=== PATIENT | female | born 1990 | race Hispanic/Latino ===

== ENCOUNTER 2017-05-27 21:02 | Emergency (ER) | payer SELFPAY | END 2017-05-27 21:58 | disposition home or self-care (01) | LOC: EDH 21:02 | DX: N81.9 Female genital prolapse, unspecified (principal); J45.909 Unspecified asthma, uncomplicated; Z98.51 Tubal ligation status | CPT/HCPCS: 99281 ==

== ENCOUNTER 2017-07-27 21:54 | Emergency (ER) | payer MEDICAID ==
[2017-07-27 23:35] LABS: BILIRUBIN,URINE Negative (NEGATIVE); COLOR,URINE Yellow (YELLOW); GLUCOSE, URINE (UA) Negative (NEGATIVE); KETONES,URINE Negative (NEGATIVE); LEUKOCYTE ESTERASE ,URINE Negative (NEGATIVE); NITRATE,URINE Negative (NEGATIVE); OCCULT BLOOD,URINE Negative (NEGATIVE); PH,URINE >=9.0 (5.0-8.0); PROTEIN,URINE Negative (NEGATIVE)
[2017-07-27 23:36] LABS: APPEARANCE,URINE CLOUDY (CLEAR); HCG,QUAL RESULT NEGATIVE (NEGATIVE)
[2017-07-27 23:44] LABS: BACTERIA,URINE Many /HPF (None Seen); RBC,URINE None Seen /HPF (0-1); SQUAMOUS EPITHELIAL CELL,UR 0-2 /HPF (0-2)
[2017-07-27 23:49] LABS: AMPHET/METH SCREEN,URINE NEGATIVE (NEGATIVE); BARBITURATE SCREEN, URINE NEGATIVE (NEGATIVE); BENZODIAZEPINES SCREEN,URINE NEGATIVE (NEGATIVE); CANNABINOID SCREEN,URINE NEGATIVE (NEGATIVE); COCAINE SCREEN,URINE NEGATIVE (NEGATIVE); OPIATE SCREEN,URINE NEGATIVE (NEGATIVE); PHENCYCLIDINE SCREEN,URINE NEGATIVE (NEGATIVE)
[2017-07-27] MEDS ORDERED: ONDANSETRON HCL 4 MG/2 ML VIAL ONE (23:55)
[2017-07-27] MEDS ORDERED: DiphenhydrAMINE HCL 50 MG/ML VIAL ONE (23:55)
[2017-07-27] MEDS ORDERED: METOCLOPRAMIDE 10 MG TABLET ONE (23:56)
[2017-07-27] MEDS ORDERED: KETOROLAC TROMETHAMINE 30MG/ML ONE (23:56)
[2017-07-27] MEDS ORDERED: SODIUM CHLORIDE 0.9% 1000ML 1,000 ML IV ONE (23:56)
[2017-07-28 00:05] LABS: BASOPHILS % (AUTO) 0.8 % (0.0-5.0); EOSINOPHILS % (AUTO) 6.8 % (0.0-8.0); HEMATOCRIT 28.3 % (36-48); LYMPHOCYTES % (AUTO) 20.2 % (21.0-51.0); MEAN CORPUSCULAR HGB CONC 31.1 g/dL (32.0-36.0); MEAN CORPUSCULAR VOLUME 60.9 fL (79-99); MONOCYTES % (AUTO) 4.9 % (3.0-13.0); NEUTROPHILS % (AUTO) 67.3 % (40.0-77.0); PLATELET COUNT (AUTO) 261 K/uL (130-400); RED BLOOD CELL COUNT(AUTO) 4.64 MIL/uL (4.00-5.50); RED CELL DISTRIBUTION WIDTH 21.8 % (11.0-15.5); WHITE BLOOD COUNT (AUTO) 10.1 K/uL (4.8-10.8)
[2017-07-28 00:26] LABS: POTASSIUM 4.3 mmol/L (3.5-5.1)
[2017-07-28 00:30] LABS: ALBUMIN 3.8 g/dL (3.5-5.0); BILIRUBIN,TOTAL 0.1 mg/dL (0.2-1.0); TOTAL PROTEIN, SERUM 7.5 g/dL (6.0-8.3)
== END 2017-07-28 01:36 | disposition home or self-care (01) ==
LOC: EDH 21:54
DX: G44.329 Chronic post-traumatic headache, not intractable (principal); D50.0 Iron deficiency anemia secondary to blood loss (chronic); J45.909 Unspecified asthma, uncomplicated; Z72.0 Tobacco use
CPT/HCPCS: 36415; 80053; 80305; 81001; 81025; 83690; 84484; 85025; 93005; 96361; 96374; 96375; 99285; J1200; J1885; J2405; J7030

== ENCOUNTER 2017-08-26 23:40 | Emergency (ER) | payer MEDICAID | END 2017-08-27 01:31 | disposition home or self-care (01) | LOC: EDH 23:40 | DX: N89.8 Other specified noninflammatory disorders of vagina (principal); J45.909 Unspecified asthma, uncomplicated; D64.9 Anemia, unspecified; Z72.0 Tobacco use; Z98.51 Tubal ligation status | CPT/HCPCS: 99281 ==

== ENCOUNTER 2018-06-15 22:15 | Emergency (ER) | payer MEDICAID ==
[2018-06-15 22:44] LABS: APPEARANCE,URINE CLEAR (CLEAR); BILIRUBIN,URINE NEGATIVE (NEGATIVE); COLOR,URINE YELLOW (YELLOW); GLUCOSE, URINE (UA) NEGATIVE (NEGATIVE); KETONES,URINE NEGATIVE (NEGATIVE); LEUKOCYTE ESTERASE ,URINE SMALL (NEGATIVE); NITRATE,URINE NEGATIVE (NEGATIVE); OCCULT BLOOD,URINE TRACE-INTACT (NEGATIVE); PH,URINE 5.5 (5.0-8.0); PROTEIN,URINE NEGATIVE (NEGATIVE); UROBILINOGEN,URINE 0.2 mg/dL (0.2-1.0)
[2018-06-15 22:48] LABS: HCG,QUAL RESULT NEGATIVE (NEGATIVE)
[2018-06-15 22:50] LABS: BACTERIA,URINE None Seen /HPF (None Seen); RBC,URINE 0-1 /HPF (0-1); SQUAMOUS EPITHELIAL CELL,UR Rare /HPF (0-2); WBC,URINE 0-1 /HPF (0-1)
[2018-06-15] MEDS ORDERED: DICYCLOMINE HCL 10 MG/ML 2ML AMP IM ONE ×2 (23:05→23:34)
[2018-06-15 23:09] LABS: CREATININE 0.7 mg/dL (0.5-1.5); POTASSIUM 3.9 mmol/L (3.5-5.1)
[2018-06-15 23:14] LABS: ALBUMIN 3.8 g/dL (3.5-5.0); BILIRUBIN,TOTAL 0.3 mg/dL (0.2-1.0); TOTAL PROTEIN, SERUM 7.7 g/dL (6.0-8.3)
[2018-06-15 23:17] LABS: BASOPHILS % (AUTO) 0.6 % (0.0-5.0); HEMATOCRIT 31.5 % (36-48); LYMPHOCYTES % (AUTO) 13.6 % (21.0-51.0); MEAN CORPUSCULAR HEMOGLOBIN 21.6 pg (27.0-33.0); MEAN CORPUSCULAR HGB CONC 31.3 g/dL (32.0-36.0); MONOCYTES % (AUTO) 6.7 % (3.0-13.0); NEUTROPHILS % (AUTO) 78.1 % (40.0-77.0); PLATELET COUNT (AUTO) 205 K/uL (130-400); RED BLOOD CELL COUNT(AUTO) 4.56 MIL/uL (4.00-5.50); WHITE BLOOD COUNT (AUTO) 15.2 K/uL (4.8-10.8)
[2018-06-15] MEDS ORDERED: KETOROLAC TROMETHAMINE 30MG/ML ONE (23:28)
== END 2018-06-16 02:32 | disposition home or self-care (01) ==
LOC: EDH 22:15
DX: A08.4 Viral intestinal infection, unspecified (principal); I10 Essential (primary) hypertension; E78.5 Hyperlipidemia, unspecified; F41.9 Anxiety disorder, unspecified; F32.9 Major depressive disorder, single episode, unspecified; Z79.899 Other long term (current) drug therapy; Z72.0 Tobacco use; Z98.51 Tubal ligation status
CPT/HCPCS: 36415; 80053; 81001; 81025; 85025; 96361; 96372; 96374; 99285; J0500 ×2; J1885

== ENCOUNTER 2018-11-29 09:09 | Emergency (ER) | payer MEDICAID ==
[2018-11-29 09:57] LABS: BASOPHILS % (AUTO) 0.9 % (0.0-5.0); EOSINOPHILS % (AUTO) 3.9 % (0.0-8.0); HEMATOCRIT 34.2 % (36-48); MEAN CORPUSCULAR HEMOGLOBIN 21.2 pg (27.0-33.0); MEAN CORPUSCULAR HGB CONC 31.4 g/dL (32.0-36.0); MEAN CORPUSCULAR VOLUME 67.5 fL (79-99); MONOCYTES % (AUTO) 4.4 % (3.0-13.0); NEUTROPHILS % (AUTO) 64.8 % (40.0-77.0); PLATELET COUNT (AUTO) 220 K/uL (130-400); RED BLOOD CELL COUNT(AUTO) 5.07 MIL/uL (4.00-5.50); RED CELL DISTRIBUTION WIDTH 20.1 % (11.0-15.5); WHITE BLOOD COUNT (AUTO) 5.1 K/uL (4.8-10.8)
[2018-11-29 10:05] LABS: CREATININE 0.8 mg/dL (0.5-1.5); POTASSIUM 3.9 mmol/L (3.5-5.1)
[2018-11-29] MEDS ORDERED: SODIUM CHLORIDE 0.9% 1000ML 1,000 ML IV ONE (10:30)
[2018-11-29 11:02] LABS: B-TYPE NATRIURETIC PEPTIDE < 5 pg/mL (0-100)
[2018-11-29 13:15] LABS: HCG,QUAL RESULT NEGATIVE (NEGATIVE)
[2018-11-29 13:19] LABS: AMPHET/METH SCREEN,URINE NEGATIVE (NEGATIVE); BARBITURATE SCREEN, URINE NEGATIVE (NEGATIVE); BENZODIAZEPINES SCREEN,URINE NEGATIVE (NEGATIVE); CANNABINOID SCREEN,URINE NEGATIVE (NEGATIVE); COCAINE SCREEN,URINE NEGATIVE (NEGATIVE); OPIATE SCREEN,URINE NEGATIVE (NEGATIVE); PHENCYCLIDINE SCREEN,URINE NEGATIVE (NEGATIVE)
== END 2018-11-29 12:59 | disposition home or self-care (01) ==
LOC: EDH 09:09
DX: R06.00 Dyspnea, unspecified (principal); F41.9 Anxiety disorder, unspecified; J45.909 Unspecified asthma, uncomplicated; I10 Essential (primary) hypertension; F32.9 Major depressive disorder, single episode, unspecified; Z72.0 Tobacco use
CPT/HCPCS: 36415; 71045; 80048; 80305; 81025; 83880; 84484; 85025; 93005; 99285; J7030

== ENCOUNTER → 2019-03-21 | Outpatient (CLI) | payer MEDICAID | END | disposition home or self-care (01) | LOC: RAH 12:52 | PROVIDERS: ATTEND Family Medicine | DX: R20.0 Anesthesia of skin (principal); G89.29 Other chronic pain | CPT/HCPCS: 70551; 72148 ==

== ENCOUNTER → 2019-06-13 | Outpatient (CLI) | payer MEDICAID | END | disposition home or self-care (01) | LOC: RAH 09:22 | PROVIDERS: ATTEND Family Medicine | DX: K21.9 Gastro-esophageal reflux disease without esophagitis (principal) | CPT/HCPCS: 74240 ==

== ENCOUNTER 2020-05-20 04:52 | Emergency (ER) | payer MEDICAID ==
[2020-05-20] MEDS ORDERED: HYDROXYZINE HCL 25 MG TABLET ONE (05:10)
== END 2020-05-20 05:48 | disposition home or self-care (01) ==
LOC: EDH 04:52
DX: F41.1 Generalized anxiety disorder (principal); J45.909 Unspecified asthma, uncomplicated; F32.9 Major depressive disorder, single episode, unspecified; I10 Essential (primary) hypertension; K21.9 Gastro-esophageal reflux disease without esophagitis; Z72.0 Tobacco use
CPT/HCPCS: 96372

== ENCOUNTER → 2020-07-02 | Outpatient (CLI) | payer MEDICAID | END | disposition home or self-care (01) | LOC: RAH 08:18 | PROVIDERS: ATTEND Family Medicine | DX: K21.9 Gastro-esophageal reflux disease without esophagitis (principal) | CPT/HCPCS: 74240 ==

== ENCOUNTER 2020-11-15 11:19 | Emergency (ER) | payer MEDICAID ==
[~2020-11-15] VITALS: Ht 160 cm; Wt 80.7 kg
[2020-11-15 11:23] VITALS: BP 121/67
[2020-11-15 12:22] LABS: HCG,QUAL RESULT NEGATIVE (NEGATIVE)
[2020-11-15 12:23] LABS: APPEARANCE,URINE Clear (CLEAR); BILIRUBIN,URINE Negative (NEGATIVE); COLOR,URINE Yellow (YELLOW); GLUCOSE, URINE (UA) Negative (NEGATIVE); KETONES,URINE Negative (NEGATIVE); LEUKOCYTE ESTERASE ,URINE Negative (NEGATIVE); NITRATE,URINE Negative (NEGATIVE); OCCULT BLOOD,URINE Negative (NEGATIVE); PH,URINE 7.5 (5.0-8.0); PROTEIN,URINE Negative (NEGATIVE)
[2020-11-15] MEDS ORDERED: FENTANYL 50 MCG/HR PATCH TD SCH (12:30)
[2020-11-15] MEDS ORDERED: KETOROLAC 60 MG VIAL (30MG/ML) IM ONE (12:30)
[2020-11-15 12:31] LABS: BASOPHILS % (AUTO) 0.3 % (0.0-5.0); EOSINOPHILS % (AUTO) 2.9 % (0.0-8.0); HEMATOCRIT 38.7 % (36-48); LYMPHOCYTES % (AUTO) 20.7 % (21.0-51.0); MEAN CORPUSCULAR HEMOGLOBIN 25.1 pg (27.0-33.0); MEAN CORPUSCULAR HGB CONC 31.8 g/dL (32.0-36.0); MONOCYTES % (AUTO) 7.7 % (3.0-13.0); NEUTROPHILS % (AUTO) 68.1 % (40.0-77.0); PLATELET COUNT (AUTO) 193 K/uL (130-400); RED CELL DISTRIBUTION WIDTH 23.4 % (11.0-15.5); WHITE BLOOD COUNT (AUTO) 6.9 K/uL (4.8-10.8)
[2020-11-15 12:40] LABS: CREATININE 0.6 mg/dL (0.5-1.5)
[2020-11-15 12:45] LABS: ALBUMIN 3.5 g/dL (3.5-5.0); BILIRUBIN,TOTAL 0.2 mg/dL (0.2-1.0); TOTAL PROTEIN, SERUM 7.2 g/dL (6.0-8.3)
[2020-11-15] MEDS ORDERED: ACET-2247 PO (13:19)
== END 2020-11-15 13:26 | disposition home or self-care (01) ==
LOC: EDH 11:19
DX: G89.18 Other acute postprocedural pain (principal); R10.9 Unspecified abdominal pain; E78.00 Pure hypercholesterolemia, unspecified; Z90.49 Acquired absence of other specified parts of digestive tract
CPT/HCPCS: 36415; 74176; 80053; 81003; 81025; 85025; 96372; 99284; J1885

== ENCOUNTER → 2021-05-18 | Outpatient (CLI) | payer MEDICAID ==
[~2021-05-18] MED LIST: ACET-2247 PO
== END | disposition home or self-care (01) ==
LOC: RAH 10:22
PROVIDERS: ATTEND Family Medicine
DX: E28.2 Polycystic ovarian syndrome (principal)
CPT/HCPCS: 76856

== ENCOUNTER 2021-11-18 21:12 | Emergency (ER) | payer MEDICAID ==
[~2021-11-18] VITALS: Ht 160 cm; Wt 80.7 kg
[2021-11-18 22:04] LABS: APPEARANCE,URINE CLOUDY (CLEAR); BILIRUBIN,URINE NEGATIVE (NEGATIVE); COLOR,URINE YELLOW (YELLOW); GLUCOSE, URINE (UA) NEGATIVE (NEGATIVE); KETONES,URINE NEGATIVE (NEGATIVE); LEUKOCYTE ESTERASE ,URINE 500 Leu/uL (NEGATIVE); NITRATE,URINE NEGATIVE (NEGATIVE); OCCULT BLOOD,URINE LARGE (NEGATIVE); PROTEIN,URINE 70 mg/dL (NEGATIVE); UROBILINOGEN,URINE 0.2 mg/dL (0.2-1.0)
[2021-11-18 22:08] LABS: BACTERIA,URINE RARE /HPF (None Seen); MUCUS,URINE RARE LPF (None Seen); RBC,URINE TNTC /HPF (0-1); SQUAMOUS EPITHELIAL CELL,UR MOD /HPF (0-2); URIC ACID CRYSTALS,URINE RARE /LPF (None Seen); WBC,URINE TNTC /HPF (0-1)
[2021-11-18] MEDS ORDERED: PHEN-847 PO (22:20)
[2021-11-18] MEDS ORDERED: MACR100 PO (22:20)
[2021-11-18 22:30] VITALS: BP 108/72
[2021-11-18] MEDS ORDERED: NITROFURANTOIN MONOHYD/M-CRYST 100 MG CAPSULE PO ONE (22:30)
[2021-11-18] MEDS ORDERED: PHENAZOPYRIDINE HCL 200 MG TABLET PO ONE (22:30)
== END 2021-11-18 22:36 | disposition home or self-care (01) ==
LOC: EDH 21:12
DX: N39.0 Urinary tract infection, site not specified (principal); E78.00 Pure hypercholesterolemia, unspecified; Z90.49 Acquired absence of other specified parts of digestive tract
CPT/HCPCS: 81001; 87077; 87088; 87186

== ENCOUNTER 2023-06-11 04:34 | Emergency (ER) | payer MEDICAID ==
[~2023-06-11] VITALS: Ht 160 cm; Wt 72.6 kg
[~2023-06-11 04:34] MED LIST changes: +MACR100 PO; +PHEN-847 PO
[2023-06-11 04:58] LABS: BASOPHILS # (AUTO) 0.04 K/uL (0.00-0.20); BASOPHILS % (AUTO) 0.5 % (0.0-5.0); EOSINOPHILS # (AUTO) 0.31 K/uL (0.00-0.70); EOSINOPHILS % (AUTO) 3.8 % (0.0-8.0); HEMATOCRIT 40.5 % (36-48); IMMATURE GRANULOCYTE ABSOLUTE 0.02 K/uL (0-1); LYMPHOCYTES # (AUTO) 2.6 K/uL (1.0-4.8); LYMPHOCYTES % (AUTO) 31.1 % (21.0-51.0); MEAN CORPUSCULAR HEMOGLOBIN 29.5 pg (27.0-33.0); MEAN CORPUSCULAR HGB CONC 34.1 g/dL (32.0-36.0); MEAN CORPUSCULAR VOLUME 86.5 fL (79-99); MONOCYTES # (AUTO) 0.6 K/uL (0.1-1.0); MONOCYTES % (AUTO) 7.7 % (3.0-13.0); NEUTROPHILS # (AUTO) 4.7 K/uL (1.8-7.7); NEUTROPHILS % (AUTO) 56.7 % (40.0-77.0); PLATELET COUNT (AUTO) 212 K/uL (130-400); RED BLOOD CELL COUNT(AUTO) 4.68 MIL/uL (4.00-5.50); RED CELL DISTRIBUTION WIDTH 13.5 % (11.0-15.5); WHITE BLOOD COUNT (AUTO) 8.2 K/uL (4.8-10.8)
[2023-06-11] MEDS: ONDANSETRON 4MG INJ IVP ONE (05:04)
[2023-06-11] MEDS: 0.9%NACL 1000ML 1,000 ML IV ONE (05:04)
[2023-06-11] MEDS: ONDANSETRON 4MG INJ ONE (05:07)
[2023-06-11 05:08] LABS: CREATININE 0.7 mg/dL (0.5-1.0); POTASSIUM 3.5 mmol/L (3.5-5.1)
[2023-06-11 05:09] LABS: APPEARANCE,URINE CLEAR (CLEAR); BILIRUBIN,URINE NEGATIVE (NEGATIVE); COLOR,URINE YELLOW (YELLOW); GLUCOSE, URINE (UA) NEGATIVE (NEGATIVE); KETONES,URINE NEGATIVE (NEGATIVE); LEUKOCYTE ESTERASE ,URINE 75 Leu/uL (NEGATIVE); NITRATE,URINE NEGATIVE (NEGATIVE); OCCULT BLOOD,URINE MODERATE (NEGATIVE); PH,URINE 5.5 (5.0-8.0); PROTEIN,URINE 20 mg/dL (NEGATIVE)
[2023-06-11 05:12] LABS: ALBUMIN 3.6 g/dL (3.5-5.0); BILIRUBIN,TOTAL 0.2 mg/dL (0.2-1.0); TOTAL PROTEIN, SERUM 7.3 g/dL (6.0-8.3)
[2023-06-11 05:18] LABS: AMPHET/METH SCREEN,URINE NEGATIVE (NEGATIVE); BARBITURATE SCREEN, URINE NEGATIVE (NEGATIVE); BENZODIAZEPINES SCREEN,URINE NEGATIVE (NEGATIVE); CANNABINOID SCREEN,URINE NEGATIVE (NEGATIVE); COCAINE SCREEN,URINE NEGATIVE (NEGATIVE); OPIATE SCREEN,URINE NEGATIVE (NEGATIVE); PHENCYCLIDINE SCREEN,URINE NEGATIVE (NEGATIVE)
[2023-06-11 05:28] LABS: ADD UA MICROSCOPIC YES
[2023-06-11 05:29] LABS: BACTERIA,URINE MOD /HPF (None Seen); MUCUS,URINE FEW LPF (None Seen); SQUAMOUS EPITHELIAL CELL,UR MANY /HPF (0-2)
[2023-06-11] MEDS: MAGNESIUM OXIDE 400 MG TABLET PO ONE (05:30)
[2023-06-11 05:34] LABS: HCG,QUALITATIVE URINE NEGATIVE (NEGATIVE)
[2023-06-11] MEDS ORDERED: ONDA4TAB10 PO (06:27)
[2023-06-11 06:28] VITALS: BP 113/83; PULSE 77; RESP 18; O2SAT 98
== END 2023-06-11 06:38 | disposition home or self-care (01) ==
LOC: EDH 04:34
DX: S96.912A Strain of unspecified muscle and tendon at ankle and foot level, left foot, initial encounter (principal); R55 Syncope and collapse; E86.9 Volume depletion, unspecified; K52.9 Noninfective gastroenteritis and colitis, unspecified; E78.00 Pure hypercholesterolemia, unspecified; F41.9 Anxiety disorder, unspecified; F32.A Depression, unspecified; Z90.49 Acquired absence of other specified parts of digestive tract; Z98.51 Tubal ligation status; W18.39XA Other fall on same level, initial encounter; Y93.89 Activity, other specified; Y92.89 Other specified places as the place of occurrence of the external cause; Y99.8 Other external cause status
CPT/HCPCS: 99285; 96374; 96361; 84484; 80053; 80305; 83690; 85025; 87077; 87088; 87186; 81025; 36415; 73610; 93005; 81001; J7030; J2405

== ENCOUNTER 2025-02-05 12:50 | Emergency (ER) | payer MEDICAID ==
[~2025-02-05] VITALS: Ht 160 cm; Wt 82.1 kg
--- NOTE | 2025-02-05 13:25 | ERN ---
ED Note History of Present Illness Stated Complaint: HEAD INJURY Chief Complaint: Head, Face, Neck Trauma Time Seen by MD: 13:08 Time Seen by Midlevel: 13:10 Dictation: Ms. Pugh 37-year-old female with history of anemia, menorrhagia, endometriosis, anxiety/depression, and prior cholecystectomy who presented to the emergency department this afternoon after a fall. She states that she is currently on day four of from menses which is heavy . She states that she was in the bathroom when she woke up on her left side onto the floor. She states she did strike her head. She states she does not take any anticoagulants. She reports feeling fatigued with general weakness, dizziness, and headache. She states that she has a history of anemia and has required iron infusions as she does not seem to tolerate oral iron supplements. She is currently follow up by both soil science teacher and Hematology. She denies fever, chills, shortness of breath, cough, chest pain, palpitations, edema, abdominal pain, nausea, vomiting, hematemesis, constipation, diarrhea, melena, hematochezia, dysuria, or focal weakness/paresthesia. Buyer: Dr. Antione Velazquez SUPERVISOR UNLOADING: Dr. Arik Hernandez Allergies: Coded Allergies: No Known Allergies (Unverified Allergy, Unknown, 05/20/20) Home Meds Active Scripts Ondansetron (Ondansetron Odt) 4 Mg Tab.rapdis, 4 MG PO TID PRN for NAUSEA, #30 TAB 1 Refill Prov:CATALINO FRAUSTO MD 06/11/23 Phenazopyridine HCl (Pyridium) 200 Mg Tab, 200 MG PO TIDP PRN for bladder pain, #9 TAB 0 Refills TAKE WITH FOOD TO PREVENT STOMACH UPSET. Prov:MATHEW WISE MD 11/18/21 Nitrofurantoin/Nitrofuran Mac (Macrobid) 100 Mg Cap, 1 CAP PO BID for 7 Days, #14 CAP 0 Refills Prov:MATHEW WISE MD 11/18/21 Acetaminophen (Tylenol) 325 Mg Tablet, 975 MG PO QIDP PRN for ABDOMINAL PAIN, #1 00 TAB Prov:MARYANN ERICKSON 11/15/20 Past Medical History Past Medical History: Anemia, Anxiety, Depression, Endometriosis, Ovarian Cyst Additional Past Medical Hx: PREDIABETIC, DR VELAZQUEZ IS FOR THE ANEMIA Surgical History: Cholecystectomy Surgical History Other: Cholecystectomy PSYCH History: anxiety Social History: Negative, Lives with family, Other LMP: Jan 31, 2025 RN Note Reviewed/Agreed w/PFSH: Yes Review of System Dictation REVIEW OF SYSTEMS: CONSTITUTIONAL: Patient denies fevers, chills, sweats and weight changes. Reports fatigue and general weakness. EYES: Patient denies any visual symptoms. EARS, NOSE, AND THROAT: No difficulties with hearing. No symptoms of rhinitis or sore throat. CARDIOVASCULAR: Patient denies chest pains, palpitations, orthopnea and paroxysmal nocturnal dyspnea. RESPIRATORY: No dyspnea on exertion, no wheezing or cough. GI: No nausea, vomiting, diarrhea, constipation, abdominal pain, hematochezia or melena. : No urinary hesitancy or dribbling. No nocturia or urinary frequency. No abnormal urethral discharge. Reports heavy menses. LMP started four days ago. MUSCULOSKELETAL: Reports body aches. NEUROLOGIC: No seizures. Patient denies numbness, tingling or weakness. Reports headache; states struck her head. Reports dizziness PSYCHIATRIC: Patient denies problems with mood disturbance. No problems with anxiety. ENDOCRINE: No excessive urination or excessive thirst. DERMATOLOGIC: Patient denies any rashes or skin changes. Initial Vital Sign VS Vital Signs Date Time Temp Pulse Resp B/P (MAP) Pulse Ox O2 Delivery O2 Flow Rate FiO2 02/05/25 12:56 97.5 76 18 123/74 98 Room Air 0 02/05/25 13:44 21 Physical Exam Dictation Vital signs: Reviewed. Afebrile. Constitutional: No acute distress. Accompanied by family Head/Face: Normocephalic, atraumatic. Eyes: Periorbital areas with no swelling, redness, or edema. Lids and lashes are normal. Conjunctival injection is absent. Sclera anicteric. Pupils equal, round, reactive to light. EOM intact. ENT: Pinnas intact and no signs of trauma or erythema. Ear canals clear and no discharge. TMs no erythema. No nasal discharge or bleeding noted. Oropharynx with no exudate, redness, swelling, masses, exudates, or evidence of obstruction. Uvula midline. Mucous membranes moist. No otorrhea, no rhinorrhea Neck: Trachea midline, no masses palpated, and no cervical lymphadenopathy. No swelling. Supple, full range of motion. Chest/Axilla: No tenderness, no crepitus, no paradoxical movement, no retractions. Cardiovascular: Regular rate, regular rhythm, no murmur, no gallops. Symmetric pulses. No peripheral edema. BP 123/74. Heart rate 76 Respiratory: Respirations even and unlabored. Lung sounds clear; no wheezes, rales or rhonchi. Room air SpO2 98% Gastrointestinal: Obese. No distention is appreciated. Bowel sounds are normal. No mass or organomegaly . There is no tenderness. No rebound. No rigidity. No voluntary or involuntary guarding. No Negro's sign. : negative CVA tenderness bilaterally Neurological: Normal speech/no dysarthria. Face is symmetrical., gross motor function intact, gross sensory function intact. No focal weakness/Paresthesia. SITA; 3mm. Musculoskeletal/Extremities: All extremities have full range of motion, no pain or tenderness on palpation. Symmetric pulses. Cervical spine with no visible deformity, swelling, or step-off. Full range of motion without discomfort. No midline cervical spine tenderness to palpation. No paraspinal muscle tenderness. No upper extremity weakness/numbness/tingling. Integumentary: Intact. Skin is normal color, warm and dry. Cap refill less than 3 seconds. Results (Laboratory/Radiology) Laboratory/Radiology Laboratory Tests Test 02/05/25 13:30 White Blood Count 7.3 K/uL (4.8-10.8) Red Blood Count 4.47 MIL/uL (4.00-5.50) Hemoglobin 9.2 g/dL (12.0-16.0) L Hematocrit 31.9 % (36-48) L Mean Corpuscular Volume 71.4 fL (79-99) L Mean Corpuscular Hemoglobin 20.6 pg (27.0-33.0) L Mean Corpuscular Hemoglobin Concent 28.8 g/dL (32.0-36.0) L Red Cell Distribution Width 18.3 % (11.0-15.5) H Platelet Count 246 K/uL (130-400) Mean Platelet Volume 10.4 fL (7.5-10.5) Immature Granulocyte % (Auto) 0.6 % (0-1) Neutrophils (%) (Auto) 69.7 % (40.0-77.0) Lymphocytes (%) (Auto) 21.0 % (21.0-51.0) Monocytes (%) (Auto) 6.8 % (3.0-13.0) Eosinophils (%) (Auto) 1.5 % (0.0-8.0) Basophils (%) (Auto) 0.4 % (0.0-5.0) Neutrophils # (Auto) 5.1 K/uL (1.8-7.7) Lymphocytes # (Auto) 1.5 K/uL (1.0-4.8) Monocytes # (Auto) 0.5 K/uL (0.1-1.0) Eosinophils # (Auto) 0.11 K/uL (0.00-0.70) Basophils # (Auto) 0.03 K/uL (0.00-0.20) Absolute Immature Granulocyte (auto 0.04 K/uL (0-1) Nucleated Red Blood Cells 0.0 % (0.0-0.19) Red Blood Cell Morphology See comments Prothrombin Time 10.4 SEC (9.6-11.6) Prothromb Time International Ratio 0.98 (0.85-1.15) Activated Partial Thromboplast Time 23.5 SEC (26.3-35.5) L Sodium Level 138 mmol/L (136-145) Potassium Level 4.1 mmol/L (3.5-5.1) Chloride Level 103 mmol/L (101-111) Carbon Dioxide Level 29 mmol/L (21-32) Blood Urea Nitrogen 9 mg/dL (7-18) Creatinine 0.8 mg/dL (0.5-1.0) Glomerular Filtration Rate Calc 98 mL/min (>90) Random Glucose 98 mg/dL (70-105) Total Calcium 8.6 mg/dL (8.5-10.1) Troponin I High Sensitivity 4 ng/L (4-50) Labs Reviewed?: Yes EKG Comment: EKG Interpretation: Time Reviewed: 1359 Ventricular rate: 72 bpm MI Interval: 209 ms QRS duration: [address] segment elevation or depression. Clinical impression: Sinus rhythm EKG Reviewed and interpreted by Dr. Azul Felipe CT Scan Comment: PATIENT: SARA PUGH MR#: [id number] : 1990 SEX: F AGE: 34 LOCATION: [facility] ORDER 17 STATUS: REG ER REPORT#: [id number] SERVICE 16 REASON: fall, + LOC ORDERING PHYSICIAN: ABHIJIT MILLER PROCEDURE: HEAD WO - CT HEAD/BRAIN W/O CONTRAST EXAM: CT Head Without IV contrast. CLINICAL HISTORY: fall, + LOC TECHNIQUE: Axial computed tomography images of the head/brain without intravenous contrast. COMPARISON: None provided. FINDINGS: BRAIN: No evidence of acute hemorrhage. No mass lesion. No CT evidence for acute territorial infarct. No midline shift or extra-axial collections. VENTRICLES: No hydrocephalus. ORBITS: The orbits are unremarkable. SINUSES AND MASTOIDS: The paranasal sinuses and mastoid air cells are clear. BONES: No fracture. SOFT TISSUES: Unremarkable. IMPRESSION: No acute intracranial abnormality. /[place] DICTATED BY: WILL LOYD DO DATE: 02/05/251505 ELECTRONICALLY SIGNED BY: WILL LOYD DO DATE: 02/05/25 150 ED Course ED Course Orders Procedure Category Date Status Time Cbc With Differential LAB 02/05/25 Complete 13:17 Basic Metabolic Panel LAB 02/05/25 Complete 13:17 Type And Screen BBK 02/05/25 Complete 13:17 Pt And Ptt LAB 02/05/25 Complete 13:17 12 Lead Ekg Tracing- EKG 02/05/25 Complete Technical 13:17 Troponin I High LAB 02/05/25 Complete Sensitivity 13:17 Ct Head/Brain W/O CT 02/05/25 Resulted Contrast 13:17 Orthostatic Vital CPOE 02/05/25 Transmitted Signs 13:59 Vital Signs Date Time Temp Pulse Resp B/P (MAP) Pulse Ox O2 Delivery O2 Flow Rate FiO2 02/05/25 13:44 97.5 76 18 123/44 98 Room Air* 0 21 02/05/25 12:56 97.5 76 18 123/74 98 Room Air 0 Uneventful ED course. Vital signs remained stable; afebrile and normotensive without tachycardia. Room air SpO2 98%. Afebrile. Laboratory findings as noted below. H and H are 9.2/31.9. No electrolyte derangement. No renal dysfunction. Troponin is negative. Twelve lead EKG reflects a sinus rhythm without ST-elevation. Noncontrast CT scan of the brain negative for hemorrhage or suspicious mass effect. Orthostatic vital signs unremarkable. She does complain of feeling weakness with position change. She received NS 1000 mL IV as bolus. Findings were discussed with patient and she was instructed to continue her follow up with Hematology and soil science teacher. Medical Decision Making MDM MDM: Differential diagnosis: Acute blood loss anemia/symptomatic anemia, vasovagal syncope, cardiac syncope/arrhythmia, head injury from fall Rationale: Tests considered and ordered secondary to shared decision making include: Lab, EKG, CT Previous outside records reviewed: Old ER visits. Risk of complication and/or morbidity or mortality of patient management: None Medications-Per medication reconciliation Need for hospitalization: Patient does not meet criteria for hospitalization. Need for emergency major/minor surgery: No There are no social concerns with this patient. Prescription drug management: Continue home medications Prescriptions will include symptomatic care Patient's prior external medical records from other ER visits were reviewed by me as indicated. Prior testing and results from previous visits were reviewed. Prior tests were taken into account with medical decision making and resource utilization, independent historian/historians were used to obtain complete medical history. I independently interpreted the test that were performed, results were reviewed by me and considered findings on radiology if ordered. Medical management and examination interpretation discussions were had by me with other qualified healthcare professionals as indicated for the patient's care. DX & DISP Disposition: Discharge Departure Impression: Primary Impression: Menorrhagia Additional Impressions: Stable chronic anemia, Near-syncope/syncope with brief LOC, Closed head injury Condition: Stable Additional Instructions: Today you were evaluated for a brief loss of consciousness (syncope) that occurred while your having very heavy menstrual bleeding. Your evaluation included a CT scan of the head which was normal. Blood work which showed stable anemia with your hemoglobin at 9.2. Electrolyte/kidney function which is normal. Heart enzyme which is normal EKG which showed normal sinus rhythm. Your symptoms are most likely related to your heavy menstrual bleeding and anemia, and you are stable to go home. Rest for the next 72 hours. Drink plenty of fluids to stay hydrated. Stand up slowly from sitting or lying positions to reduce dizziness. Avoid strenuous activity until your bleeding improves. Continue any iron supplements or treatments recommended by your restaurant inspector or functional tester. He had iron rich foods such as spinach, beans, red meat, and 4-5 cereals. Follow up with your soil science teacher in the next 1-2 days to discuss ongoing heavy bleeding and anemia management. If you have a functional tester, follow up as previously recommended for anemia treatment. Return to the ER immediately if you: Pass out again, has severe dizziness/feel like he might faint, I have bleeding that soaks more than one pad per hour, pass large clots (bigger than a golf ball), have chest pain/trouble bleeding/palpitations, developed severe abdominal pain, have vomiting and can not stay hydrated, notice confusion/worsening headache/vision changes, or develop any symptoms that worry you. Referrals: KRISHNA RAMIREZ MD (PCP) Time of Disposition: 14:[address] JUDGE Feb 05, 2025 13:25
[2025-02-05 13:43] LABS: IMMATURE GRANULOCYTE ABSOLUTE 0.04 K/uL (0-1); NUCLEATED RED BLOOD CELLS 0.0 % (0.0-0.19); PLATELET COUNT (AUTO) 246 K/uL (130-400); RED BLOOD CELL COUNT(AUTO) 4.47 MIL/uL (4.00-5.50); RED CELL DISTRIBUTION WIDTH 18.3 % (11.0-15.5); WHITE BLOOD COUNT (AUTO) 7.3 K/uL (4.8-10.8)
--- NOTE | 2025-02-05 13:44 | NUR ---
PATIENT IN ROOM
[2025-02-05 13:47] LABS: CREATININE 0.8 mg/dL (0.5-1.0); GLOMERULAR FILTR. RATE CALC 98.0 mL/min (>90); GLUCOSE,RANDOM 98.0 mg/dL (70-105); SODIUM SERUM 138.0 mmol/L (136-145); UREA NITROGEN, BLOOD 9.0 mg/dL (7-18)
[2025-02-05 13:49] LABS: INR 0.98 (0.85-1.15)
--- NOTE | 2025-02-05 14:07 | HMCIMG ---
EXAM: CT Head Without IV contrast. CLINICAL HISTORY: fall, + LOC TECHNIQUE: Axial computed tomography images of the head/brain without intravenous contrast. COMPARISON: None provided. FINDINGS: BRAIN: No evidence of acute hemorrhage. No mass lesion. No CT evidence for acute territorial infarct. No midline shift or extra-axial collections. VENTRICLES: No hydrocephalus. ORBITS: The orbits are unremarkable. SINUSES AND MASTOIDS: The paranasal sinuses and mastoid air cells are clear. BONES: No fracture. SOFT TISSUES: Unremarkable. IMPRESSION: No acute intracranial abnormality. /[place]
--- NOTE | 2025-02-05 14:10 | EKG ---
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
--- NOTE | 2025-02-05 14:42 | NUR ---
ORTHOSTATIC VITALS: LAYING: HR: 77 O2: 95 BP: 99/63 SITTING: HR: 87 O2: 94 BP: 99/68 STANDING: HR: 98 O2: 93 BP: 117/69
[2025-02-05 14:44] VITALS: BP 117/69; PULSE 98; RESP 18; TEMP 97.5; O2SAT 93
== END 2025-02-05 15:22 | disposition home or self-care (01) ==
LOC: EDH 12:50
DX: N92.0 Excessive and frequent menstruation with regular cycle (principal); D64.9 Anemia, unspecified; R55 Syncope and collapse; S09.90XA Unspecified injury of head, initial encounter; Z90.49 Acquired absence of other specified parts of digestive tract; F41.9 Anxiety disorder, unspecified; F32.A Depression, unspecified; Z87.42 Personal history of other diseases of the female genital tract
CPT/HCPCS: 36415; 70450; 80048; 84484; 85025; 85610; 85730; 86850; 86900; 86901; 93005; 99284